=== PATIENT | male | born 1955 | race African-American/Black ===

== ENCOUNTER 2020-03-01 13:27 | Inpatient (IN) | payer MEDICARE, MEDICAID ==
[2020-03-01 21:32] VITALS: BP 122/93
[2020-03-02 12:40] LABS: CHOLESTEROL 117 mg/dL (<200); LDL CHOLESTEROL 69 mg/dL (0-129); TRIGLYCERIDES 76 mg/dL (30-150)
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
[2020-03-02] MEDS ORDERED: Albuterol Nebulizer 2.5mg/3mL HHN PRN (13:24)
[2020-03-02] MEDS ORDERED: Acetaminophen 500 MG TAB PO PRN (13:24)
[2020-03-02] MEDS ORDERED: Magnesium Hydroxide (MOM) 30 mL UDC PO PRN (13:28)
--- NOTE | 2020-03-02 13:36 | History & Physical ---
ADMIT DATE: 03/02/2020 HISTORY OF PRESENT ILLNESS: We have a 64-year-old male who is transferred from [facility] at [place]. The patient has a history of hypertension, BPH, hepatitis C, who is brought here for further management. The patient has a reported history of HIV. The patient is an extremely poor historian and is hallucinating and responding to internal stimuli. No nausea, vomiting, abdominal pain, diarrhea. PAST MEDICAL HISTORY: 1. Probable HIV. 2. Hypertension. 3. History of seizures. 4. Benign prostatic hypertrophy. 5. Hepatitis C. SURGICAL HISTORY: None. MEDICATIONS: List reviewed. ALLERGIES: None. SOCIAL HISTORY: Tobacco, IV drugs, ETOH negative. REVIEW OF SYSTEMS: Difficult. PHYSICAL EXAMINATION: VITAL SIGNS: Temperature is 98.1, pulse 72, respirations 110/70, satting 95% on room air. HEENT: Normocephalic, atraumatic head exam. NECK: Supple. CARDIOVASCULAR: Regular rate and rhythm. LUNGS: Decreased breath sounds. ABDOMEN: Soft, nontender. EXTREMITIES: No edema, cyanosis or clubbing. NEUROLOGIC: Cranial nerve exam, the patient is not cooperative. ASSESSMENT AND PLAN: 1. HIV. 2. Hepatitis C. 3. Hypertension. The patient will be continued on his home meds. The patient will have a CBC, CMP and COVID screening test done. [facility]# [id number]
[2020-03-02] MEDS ORDERED: EMTRICITABINE PO SCH (13:45)
[2020-03-02] MEDS ORDERED: TENOFOVIR PO SCH (13:45)
[2020-03-02] MEDS: TIVICAY 50 MG PO SCH (15:18)
[2020-03-02] MEDS: TRUVADA PO SCH (15:18)
[2020-03-03] MEDS: TIVICAY 50 MG PO SCH (08:45)
[2020-03-03] MEDS: TRUVADA PO SCH (08:45)
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
--- NOTE | 2020-03-03 14:16 | Internal Medicine Prog Note ---
Internal Medicine Subjective - Subjective Service Date: 03/03/20 Patient seen and examined:: without staff Patient is:: awake Per staff patient has:: no adverse event, no episodes of fall Internal Medicine Objective - Results Recent Labs: Laboratory Last Values Triglycerides 76 mg/dL (30-150) 03/02/20 10:21 Cholesterol 117 mg/dL (<200) 03/02/20 10:21 LDL Cholesterol 69 mg/dL (0-129) 03/02/20 10:21 HDL Cholesterol 34 mg/dL (>45) L 03/02/20 10:21 - Physical Exam Vitals and I&O: Vital Signs Temp 97.3 F 03/03/20 06:16 Pulse 77 03/03/20 08:38 Resp 20 03/03/20 07:17 BP 114/70 03/03/20 08:38 Pulse Ox 98 03/03/20 06:16 Intake & Output 03/02/20 03/03/20 03/03/20 18:59 06:59 18:59 Intake Total 1200 240 Balance 1200 240 Intake: Oral 1200 240 Other: # Voids 4 2 # Bowel Movements 1 Active Medications: Current Medications Acetaminophen (Tylenol) 650 mg PO Q4H PRN PRN Reason: Temperature above 101 Stop: 04/30/20 22:14 Acetaminophen (Tylenol Extra Strength) 500 mg PO Q6HR PRN PRN Reason: Pain (Mild 1-3) Stop: 05/01/20 13:23 Albuterol Sulfate (Albuterol 2.5mg/3ml Neb Ud) 2.5 mg HHN Q6HR PRN PRN Reason: Shortness of Breath Amlodipine Besylate (Norvasc) 2.5 mg PO DAILY JUHI Stop: 05/02/20 08:59 Last Admin: 03/03/20 08:38 Dose: 2.5 mg Bisacodyl (Dulcolax 10 Mg Supp) 10 mg RC Q24H PRN PRN Reason: IF MOM IS INEFFECTIVE Stop: 05/01/20 13:23 Haloperidol (Haldol) 5 mg PO DAILY JUHI; Protocol Stop: 05/01/20 08:59 Last Admin: 03/03/20 08:37 Dose: 5 mg Lorazepam (Ativan) 0.5 mg PO Q4HR PRN; Protocol PRN Reason: Anxiety Stop: 03/31/20 22:14 Last Admin: 03/03/20 08:44 Dose: 0.5 mg Magnesium Hydroxide (Milk Of Magnesia) 30 ml PO DAILY PRN PRN Reason: CONSTIPATION Stop: 05/01/20 13:27 Patient Own Med- Tivicay ( Dolutegravir ) 50mg Tab 1 PO DAILY JUHI Stop: 05/01/20 14:59 Last Admin: 03/03/20 08:45 Dose: 1 Patient Own Med- Truvada ( Emtricitabine/Tenofovir) 200/300mg 1 PO DAILY JUHI Stop: 05/01/20 14:59 Last Admin: 03/03/20 08:45 Dose: 1 Tamsulosin HCl (Flomax) 0.4 mg PO DAILY JUHI Stop: 05/02/20 08:59 Last Admin: 03/03/20 08:37 Dose: 0.4 mg Valproate Sodium (Depakene) 500 mg PO DAILY JUHI Stop: 05/01/20 08:59 Last Admin: 03/03/20 08:37 Dose: 500 mg Zolpidem Tartrate (Ambien) 5 mg PO HS PRN PRN Reason: Insomnia Stop: 04/30/20 22:14 General: weak HEENT: NC/AT Neck: Supple Lungs: CTAB Cardiovascular: RRR, Normal S1, Normal S2 Abdomen: soft, non-tender Extremities: clear Internal Medicine Assmt/Plan - Assessment Assessment: 1. HIV 2. Hep. C 3. Htn - Plan Plan: continue HIV meds continue norvasc continue nebulizers d/w r.n. reviewed complete medical records
[2020-03-04] MEDS: TRUVADA PO SCH ×2 (09:44→18:09)
[2020-03-04] MEDS: TIVICAY 50 MG PO SCH ×2 (09:44→18:09)
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
--- NOTE | 2020-03-04 22:53 | Progress Notes ---
DATE: 03/04/2020 SUBJECTIVE: Staff was spoken to. The patient is interviewed. Mood is noted to be irritable. Affect is constricted. The patient to be intrusive and sexually preoccupied. The patient's coping skills are noted to be very poor. The patient needs to be redirected and closely monitored, gets easily agitated and needs to be redirected. ASSESSMENT: The patient is still impulsive. PLAN: To continue the patient with the supportive therapy, encouraged the patient to verbalize the concerns rather than to act out. JOB# [id number]
[2020-03-05] MEDS: TRUVADA PO SCH (09:06)
[2020-03-05] MEDS: TIVICAY 50 MG PO SCH (09:06)
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
[2020-03-06] MEDS: TIVICAY 50 MG PO SCH (08:53)
[2020-03-06] MEDS: TRUVADA PO SCH (08:53)
[2020-03-06 11:34] LABS: A1C 5.1
--- NOTE | 2020-03-06 17:26 | Internal Medicine Prog Note ---
Internal Medicine Subjective - Subjective Service Date: 03/06/20 Patient seen and examined:: without staff Patient is:: awake Per staff patient has:: no adverse event, no episodes of fall Internal Medicine Objective - Results Recent Labs: Laboratory Last Values Triglycerides 76 mg/dL (30-150) 03/02/20 10:21 Cholesterol 117 mg/dL (<200) 03/02/20 10:21 LDL Cholesterol 69 mg/dL (0-129) 03/02/20 10:21 HDL Cholesterol 34 mg/dL (>45) L 03/02/20 10:21 - Physical Exam Vitals and I&O: Vital Signs Temp 97.6 F 03/06/20 15:39 Pulse 83 03/06/20 15:39 Resp 24 03/06/20 15:39 BP 109/68 03/06/20 15:39 Pulse Ox 97 03/06/20 15:39 Intake & Output 03/05/20 03/06/20 03/06/20 18:59 06:59 18:59 Intake Total 1200 600 Output Total 1 Balance 1199 600 Intake: Oral 1200 600 Output: Stool 1 Other: # Voids 4 1 # Bowel Movements 0 Active Medications: Current Medications Acetaminophen (Tylenol) 650 mg PO Q4H PRN PRN Reason: Temperature above 101 Stop: 04/30/20 22:14 Acetaminophen (Tylenol Extra Strength) 500 mg PO Q6HR PRN PRN Reason: Pain (Mild 1-3) Stop: 05/01/20 13:23 Albuterol Sulfate (Albuterol 2.5mg/3ml Neb Ud) 2.5 mg HHN Q6HR PRN PRN Reason: Shortness of Breath Amlodipine Besylate (Norvasc) 2.5 mg PO DAILY JUHI Stop: 05/02/20 08:59 Last Admin: 03/06/20 08:52 Dose: 2.5 mg Bisacodyl (Dulcolax 10 Mg Supp) 10 mg RC Q24H PRN PRN Reason: IF MOM IS INEFFECTIVE Stop: 05/01/20 13:23 Haloperidol (Haldol) 5 mg PO DAILY JUHI; Protocol Stop: 05/01/20 08:59 Last Admin: 03/06/20 08:52 Dose: 5 mg Lorazepam (Ativan) 0.5 mg PO Q4HR PRN; Protocol PRN Reason: Anxiety Stop: 03/31/20 22:14 Last Admin: 03/03/20 08:44 Dose: 0.5 mg Magnesium Hydroxide (Milk Of Magnesia) 30 ml PO DAILY PRN PRN Reason: CONSTIPATION Stop: 05/01/20 13:27 Patient Own Med- Tivicay ( Dolutegravir ) 50mg Tab 1 PO DAILY JUHI Stop: 05/01/20 14:59 Last Admin: 03/06/20 08:53 Dose: 1 Patient Own Med- Truvada ( Emtricitabine/Tenofovir) 200/300mg 1 PO DAILY JUHI Stop: 05/01/20 14:59 Last Admin: 03/06/20 08:53 Dose: 1 Tamsulosin HCl (Flomax) 0.4 mg PO DAILY JUHI Stop: 05/02/20 08:59 Last Admin: 03/06/20 08:53 Dose: 0.4 mg Valproate Sodium (Depakene) 500 mg PO DAILY JUHI Stop: 05/01/20 08:59 Last Admin: 03/06/20 08:52 Dose: Not Given Zolpidem Tartrate (Ambien) 5 mg PO HS PRN PRN Reason: Insomnia Stop: 04/30/20 22:14 General: weak HEENT: NC/AT Neck: Supple Lungs: CTAB Cardiovascular: RRR, Normal S1, Normal S2 Abdomen: soft, non-tender Extremities: clear Internal Medicine Assmt/Plan - Assessment Assessment: 1. HIV 2. Hep. C 3. Htn - Plan Plan: check covid-19 continue HIV meds continue norvasc continue nebulizers d/w r.n. reviewed complete medical records Nutritional Asmnt/Malnutr-PDOC - Dietary Evaluation Malnutrition Findings (Please click <Entered> for more info): Nutritional Asmnt/Malnutrition Start: 03/06/20 13: 44 Text: Status: Complete Freq: Protocol: Document 03/06/20 13:44 TANISHA (Rec: 03/06/20 13:47 TANISHA [id number]) Nutritional Asmnt/Malnutrition Patient General Information Nutritional Screening Low Risk Diagnosis Acute agitation and Psychosis Pertinent Medical Hx/Surgical Hx HIV, HTN, Seizures, BPH, Hepatitis C, Epilepsy Subjective Information Pt is a 64-year-old male admitted on 03/01 d/t need for further management, hallucinations and responding to internal stimuli. Pt is eating an estimated 100% of meals Per Meal/Nutrition Activity Record. Dietary is currently providing an estimated 2233 kcals and 115 gm Pro, to meet 100+% kcal and 100+% Pro needs. Anthropometrics HT: 6 WT: 222 LB (100 kg) ABW: 189 LB (85.91 kg) BMI: 30.18 (Obese Class I) GI/ Skin Integrity GI: WNL, Soft, Non-tender, Large BM: 03/04 x1 I/O: 1880/Not Noted Skin: WNL, Intact Sae: 22 Diet Order: Mechanical Soft Estimated Energy Needs: (Obese , ABW) 1113-9445 kcals (25-30 kcals/ kg) 70-90g Pro (1.0-1.2 g/kg) 8716-5108 ml (25-30 ml/kg) Current Diet Order/ Nutrition Support Mechanical Soft Pertinent Medications Albuterol Sulfate, Norvasc, Dulcolax (PRN), MOM (PRN) Pertinent Labs 03/02: HDL 34 Nutritional Hx/Data Height 1.83 m Height (Calculated Centimeters) 182.9 Current Weight (lbs) 100.698 kg Weight (Calculated Kilograms) 100.7 Weight (Calculated Grams) 015703.5 [place] Body Weight 178 LB (80.90 kg) % [place] Body Weight 125 Body Mass Index (BMI) 30.1 Weight Status Obese GI Symptoms GI Symptoms None Last BM 03/04 x1 Skin Integrity/Comment: WNL, Intact Sae: 22 Estimated Nutritional Goals BEE in Kcals: Adj wt of IBW Calories/Kcals/Kg 20-25 Kcals Calculated 7858-1791 Protein: Adj wt of IBW Protein g/k.8-1.0 Protein Calculated 70-90 Fluid: ml 2273-4595 ml (25-30 ml/kg) Nutritional Problem No current Nutrition Prob Problem No nutrition diagnosis at this time. Etiology N/A Signs/Symptoms: N/A Malnutrition Related to Morbid Obesity Malnutrition related to morbid obesity No Intervention/Recommendation Comments Continue Mechanical Soft diet as tolerated. Expected Outcomes/Goals Expected Outcomes/Goals 1. PO intake to continue to meet >75% of estimated nutritional needs. 2. Monitor PO intake, wt, nutrition related labs, and skin integrity. 3. F/U as low risk in 7-10 days, 03/13-03/16.
--- NOTE | 2020-03-06 21:36 | Progress Notes ---
DATE: 03/06/2020 PSYCHIATRIC PROGRESS NOTE SUBJECTIVE: Staff was spoken to. The patient is interviewed. Mood is noted to be irritable. Affect is constricted. The patient's insight and judgment are noted to be very poor. Impulse control is also noted to be very poor. The patient has been having difficult time to cope with the stress. The patient has been very argumentative this morning and the patient needs to be redirected. ASSESSMENT: The patient is still psychotic and impulsive. PLAN: To continue the patient with the current medications and follow up. JOB# [id number]
[2020-03-07] MEDS: TIVICAY 50 MG PO SCH (09:28)
[2020-03-07] MEDS: TRUVADA PO SCH (09:28)
--- NOTE | 2020-03-07 11:15 | Progress Notes ---
DATE: 03/06/2020 PSYCHOLOGY PROGRESS NOTE SUBJECTIVE: The patient is seen in his room and is interviewed. Case is discussed with staff. The patient continues to present as guarded, suspicious and irritable. Staff reports the patient's impulse control continues to be very poor and is not responding to behavioral redirection. The patient was angry and argumentative with this entry writer. OBJECTIVE: Mood is irritable. Affect is constricted. Thought process shows to be confused. There is paranoid ideation present. The patient was unable to verbally contract for safety. The patient did not answer questions about experiencing suicidal or homicidal ideation, plan or intention. The patient's behavior is easily agitated with poor redirectability. ASSESSMENT: The patient's psychosis and impulsivity persist. PLAN: We provided de-escalation and limit setting. We provided anger management. We provided stress management to assist the patient in increasing his frustration tolerance. We encouraged the patient to verbalize his concerns and to interact with staff appropriately as well as to follow through with staff direction. We will continue to provide this type of behavioral therapy. The patient was unable to verbally contract for safety. We will follow up in 2-3 days to continue the present treatment if the patient is able to demonstrate the capacity to benefit from psychology services as well as the willingness to participate in this treatment. JOB# [id number] LUKAS
--- NOTE | 2020-03-07 14:42 | Internal Medicine Prog Note ---
Internal Medicine Subjective - Subjective Service Date: 03/07/20 Patient seen and examined:: without staff Patient is:: awake Per staff patient has:: no adverse event, no episodes of fall Internal Medicine Objective - Results Recent Labs: Laboratory Last Values Triglycerides 76 mg/dL (30-150) 03/02/20 10:21 Cholesterol 117 mg/dL (<200) 03/02/20 10:21 LDL Cholesterol 69 mg/dL (0-129) 03/02/20 10:21 HDL Cholesterol 34 mg/dL (>45) L 03/02/20 10:21 - Physical Exam Vitals and I&O: Vital Signs Temp 98 F 03/07/20 06:24 Pulse 80 03/07/20 09:23 Resp 19 03/07/20 08:00 BP 125/71 03/07/20 09:23 Pulse Ox 99 03/07/20 06:24 Intake & Output 03/06/20 03/07/20 03/07/20 18:59 06:59 18:59 Intake Total 240 Balance 240 Intake: Oral 240 Other: # Voids 3 # Bowel Movements 0 Active Medications: Current Medications Acetaminophen (Tylenol) 650 mg PO Q4H PRN PRN Reason: Temperature above 101 Stop: 04/30/20 22:14 Acetaminophen (Tylenol Extra Strength) 500 mg PO Q6HR PRN PRN Reason: Pain (Mild 1-3) Stop: 05/01/20 13:23 Albuterol Sulfate (Albuterol 2.5mg/3ml Neb Ud) 2.5 mg HHN Q6HR PRN PRN Reason: Shortness of Breath Amlodipine Besylate (Norvasc) 2.5 mg PO DAILY [facility] Stop: 05/02/20 08:59 Last Admin: 03/07/20 09:23 Dose: 2.5 mg Bisacodyl (Dulcolax 10 Mg Supp) 10 mg RC Q24H PRN PRN Reason: IF MOM IS INEFFECTIVE Stop: 05/01/20 13:23 Haloperidol (Haldol) 5 mg PO DAILY [facility]; Protocol Stop: 05/01/20 08:59 Last Admin: 03/07/20 09:24 Dose: 5 mg Lorazepam (Ativan) 0.5 mg PO Q4HR PRN; Protocol PRN Reason: Anxiety Stop: 03/31/20 22:14 Last Admin: 03/03/20 08:44 Dose: 0.5 mg Magnesium Hydroxide (Milk Of Magnesia) 30 ml PO DAILY PRN PRN Reason: CONSTIPATION Stop: 05/01/20 13:27 Patient Own Med- Tivicay ( Dolutegravir ) 50mg Tab 1 PO DAILY [facility] Stop: 05/01/20 14:59 Last Admin: 03/07/20 09:28 Dose: 1 Patient Own Med- Truvada ( Emtricitabine/Tenofovir) 200/300mg 1 PO DAILY [facility] Stop: 05/01/20 14:59 Last Admin: 03/07/20 09:28 Dose: 1 Tamsulosin HCl (Flomax) 0.4 mg PO DAILY [facility] Stop: 05/02/20 08:59 Last Admin: 03/07/20 09:23 Dose: 0.4 mg Valproate Sodium (Depakene) 500 mg PO BID [facility] Stop: 05/06/20 16:59 Zolpidem Tartrate (Ambien) 5 mg PO HS PRN PRN Reason: Insomnia Stop: 04/30/20 22:14 General: weak HEENT: NC/AT Neck: Supple Lungs: CTAB Cardiovascular: RRR, Normal S1, Normal S2 Abdomen: soft, non-tender Extremities: clear Neurological: no change Internal Medicine Assmt/Plan - Assessment Assessment: 1. HIV 2. Hep. C 3. Htn - Plan Plan: await covid results no overt symptoms of Covid continue HIV meds continue norvasc continue nebulizers d/w r.n. reviewed complete medical records Nutritional Asmnt/Malnutr-PDOC - Dietary Evaluation Malnutrition Findings (Please click <Entered> for more info): Nutritional Asmnt/Malnutrition Start: 03/06/20 13: 44 Text: Status: Complete Freq: Protocol: Document 03/06/20 13:44 TANISHA (Rec: 03/06/20 13:47 TANISHA [id number] -[id number]) Nutritional Asmnt/Malnutrition Patient General Information Nutritional Screening Low Risk Diagnosis Acute agitation and Psychosis Pertinent Medical Hx/Surgical Hx HIV, HTN, Seizures, BPH, Hepatitis C, Epilepsy Subjective Information Pt is a 64-year-old male admitted on 03/01 d/t need for further management, hallucinations and responding to internal stimuli. Pt is eating an estimated 100% of meals Per Meal/Nutrition Activity Record. Dietary is currently providing an estimated 2233 kcals and 115 gm Pro, to meet 100+% kcal and 100+% Pro needs. Anthropometrics HT: 6 WT: 222 LB (100 kg) ABW: 189 LB (85.91 kg) BMI: 30.18 (Obese Class I) GI/ Skin Integrity GI: WNL, Soft, Non-tender, Large BM: 03/04 x1 I/O: 1880/Not Noted Skin: WNL, Intact Sae: 22 Diet Order: Mechanical Soft Estimated Energy Needs: (Obese , ABW) 7651-4335 kcals (25-30 kcals/ kg) 70-90g Pro (1.0-1.2 g/kg) 0046-3624 ml (25-30 ml/kg) Current Diet Order/ Nutrition Support Mechanical Soft Pertinent Medications Albuterol Sulfate, Norvasc, Dulcolax (PRN), MOM (PRN) Pertinent Labs 03/02: HDL 34 Nutritional Hx/Data Height 1.83 m Height (Calculated Centimeters) 182.9 Current Weight (lbs) 100.698 kg Weight (Calculated Kilograms) 100.7 Weight (Calculated Grams) 516325.5 [place] Body Weight 178 LB (80.90 kg) % [place] Body Weight 125 Body Mass Index (BMI) 30.1 Weight Status Obese GI Symptoms GI Symptoms None Last BM 03/04 x1 Skin Integrity/Comment: WNL, Intact Sae: 22 Estimated Nutritional Goals BEE in Kcals: Adj wt of IBW Calories/Kcals/Kg 20-25 Kcals Calculated 1270-0668 Protein: Adj wt of IBW Protein g/k.8-1.0 Protein Calculated 70-90 Fluid: ml 4797-3239 ml (25-30 ml/kg) Nutritional Problem No current Nutrition Prob Problem No nutrition diagnosis at this time. Etiology N/A Signs/Symptoms: N/A Malnutrition Related to Morbid Obesity Malnutrition related to morbid obesity No Intervention/Recommendation Comments Continue Mechanical Soft diet as tolerated. Expected Outcomes/Goals Expected Outcomes/Goals 1. PO intake to continue to meet >75% of estimated nutritional needs. 2. Monitor PO intake, wt, nutrition related labs, and skin integrity. 3. F/U as low risk in 7-10 days, 03/13-03/16.
--- NOTE | 2020-03-07 23:04 | Progress Notes ---
DATE: 03/07/2020 PSYCHIATRIC PROGRESS NOTE SUBJECTIVE: Staff was spoken to. The patient is interviewed. Mood is noted to be irritable. Affect is constricted. Insight and judgment at this time are noted to be still impaired. Impulse control is noted to be limited. ____ has been having difficult time. Continues to be paranoid and has been getting easily agitated. The patient has been currently on valproic acid 500 mg, which is going to be increased to twice a day in view of the impulsive behavior and mood swings and the patient is going to be followed up with the supportive therapy. ASSESSMENT: The patient is still impulsive and paranoid. PLAN: To continue the patient with the current medications and followup. JOB# [id number]
[2020-03-08] MEDS: TIVICAY 50 MG PO SCH (08:27)
[2020-03-08] MEDS: TRUVADA PO SCH (08:27)
--- NOTE | 2020-03-08 12:15 | Progress Notes ---
DATE: 03/08/2020 SUBJECTIVE: Staff was spoken to. The patient is interviewed. Mood is noted to be irritable. Affect is constricted. The patient is getting agitated at times, but could be redirectable. Sexual preoccupation has been coming down. No side effects to the medications are noted. The patient has been placed on Depakote, little bit of a higher dose along with the haloperidol and the patient is going to be closely monitored. ASSESSMENT: The patient is still having mood swings. PLAN: To continue the patient with the supportive therapy. I encouraged the patient to verbalize the concerns rather than to act out. JOB# [id number]
--- NOTE | 2020-03-08 14:14 | Internal Medicine Prog Note ---
Internal Medicine Subjective - Subjective Service Date: 03/08/20 Patient seen and examined:: without staff Patient is:: awake Per staff patient has:: no adverse event, no episodes of fall Internal Medicine Objective - Results Recent Labs: Laboratory Last Values Triglycerides 76 mg/dL (30-150) 03/02/20 10:21 Cholesterol 117 mg/dL (<200) 03/02/20 10:21 LDL Cholesterol 69 mg/dL (0-129) 03/02/20 10:21 HDL Cholesterol 34 mg/dL (>45) L 03/02/20 10:21 - Physical Exam Vitals and I&O: Vital Signs Temp 97.9 F 03/08/20 05:58 Pulse 72 03/08/20 08:18 Resp 20 03/08/20 05:58 BP 115/87 03/08/20 08:18 Pulse Ox 97 03/08/20 05:58 Intake & Output 03/07/20 03/08/20 03/08/20 18:59 06:59 18:59 Intake Total 1100 Balance 1100 Intake: Oral 1100 Other: # Voids 2 3 # Bowel Movements 0 0 Active Medications: Current Medications Acetaminophen (Tylenol) 650 mg PO Q4H PRN PRN Reason: Temperature above 101 Stop: 04/30/20 22:14 Acetaminophen (Tylenol Extra Strength) 500 mg PO Q6HR PRN PRN Reason: Pain (Mild 1-3) Stop: 05/01/20 13:23 Albuterol Sulfate (Albuterol 2.5mg/3ml Neb Ud) 2.5 mg HHN Q6HR PRN PRN Reason: Shortness of Breath Amlodipine Besylate (Norvasc) 2.5 mg PO DAILY [facility] Stop: 05/02/20 08:59 Last Admin: 03/08/20 08:18 Dose: 2.5 mg Bisacodyl (Dulcolax 10 Mg Supp) 10 mg RC Q24H PRN PRN Reason: IF MOM IS INEFFECTIVE Stop: 05/01/20 13:23 Diphenhydramine HCl (Benadryl) 25 mg PO BID PRN PRN Reason: Itching Stop: 05/07/20 09:19 Haloperidol (Haldol) 5 mg PO DAILY [facility]; Protocol Stop: 05/01/20 08:59 Last Admin: 03/08/20 08:19 Dose: 5 mg Lorazepam (Ativan) 0.5 mg PO Q4HR PRN; Protocol PRN Reason: Anxiety Stop: 03/31/20 22:14 Last Admin: 03/08/20 08:19 Dose: 0.5 mg Magnesium Hydroxide (Milk Of Magnesia) 30 ml PO DAILY PRN PRN Reason: CONSTIPATION Stop: 05/01/20 13:27 Patient Own Med- Tivicay ( Dolutegravir ) 50mg Tab 1 PO DAILY [facility] Stop: 05/01/20 14:59 Last Admin: 03/08/20 08:27 Dose: 1 Patient Own Med- Truvada ( Emtricitabine/Tenofovir) 200/300mg 1 PO DAILY [facility] Stop: 05/01/20 14:59 Last Admin: 03/08/20 08:27 Dose: 1 Tamsulosin HCl (Flomax) 0.4 mg PO DAILY [facility] Stop: 05/02/20 08:59 Last Admin: 03/08/20 08:18 Dose: 0.4 mg Valproate Sodium (Depakene) 500 mg PO BID [facility] Stop: 05/06/20 16:59 Last Admin: 03/08/20 08:25 Dose: 500 mg Zolpidem Tartrate (Ambien) 5 mg PO HS PRN PRN Reason: Insomnia Stop: 04/30/20 22:14 General: weak HEENT: NC/AT Neck: Supple Lungs: CTAB Cardiovascular: RRR, Normal S1, Normal S2 Abdomen: soft, non-tender Extremities: clear Neurological: no change Internal Medicine Assmt/Plan - Assessment Assessment: 1. HIV 2. Hep. C 3. Htn - Plan Plan: no overt symptoms of Covid continue HIV meds continue norvasc continue nebulizers d/w r.n. reviewed complete medical records Nutritional Asmnt/Malnutr-PDOC - Dietary Evaluation Malnutrition Findings (Please click <Entered> for more info): Nutritional Asmnt/Malnutrition Start: 03/06/20 13: 44 Text: Status: Complete Freq: Protocol: Document 03/06/20 13:44 TANISHA (Rec: 03/06/20 13:47 TANISHA [id number] -[id number]) Nutritional Asmnt/Malnutrition Patient General Information Nutritional Screening Low Risk Diagnosis Acute agitation and Psychosis Pertinent Medical Hx/Surgical Hx HIV, HTN, Seizures, BPH, Hepatitis C, Epilepsy Subjective Information Pt is a 64-year-old male admitted on 03/01 d/t need for further management, hallucinations and responding to internal stimuli. Pt is eating an estimated 100% of meals Per Meal/Nutrition Activity Record. Dietary is currently providing an estimated 2233 kcals and 115 gm Pro, to meet 100+% kcal and 100+% Pro needs. Anthropometrics HT: 6 WT: 222 LB (100 kg) ABW: 189 LB (85.91 kg) BMI: 30.18 (Obese Class I) GI/ Skin Integrity GI: WNL, Soft, Non-tender, Large BM: 03/04 x1 I/O: 1880/Not Noted Skin: WNL, Intact Sae: 22 Diet Order: Mechanical Soft Estimated Energy Needs: (Obese , ABW) 3668-0492 kcals (25-30 kcals/ kg) 70-90g Pro (1.0-1.2 g/kg) 1771-7366 ml (25-30 ml/kg) Current Diet Order/ Nutrition Support Mechanical Soft Pertinent Medications Albuterol Sulfate, Norvasc, Dulcolax (PRN), MOM (PRN) Pertinent Labs 03/02: HDL 34 Nutritional Hx/Data Height 1.83 m Height (Calculated Centimeters) 182.9 Current Weight (lbs) 100.698 kg Weight (Calculated Kilograms) 100.7 Weight (Calculated Grams) 464945.5 [place] Body Weight 178 LB (80.90 kg) % [place] Body Weight 125 Body Mass Index (BMI) 30.1 Weight Status Obese GI Symptoms GI Symptoms None Last BM 03/04 x1 Skin Integrity/Comment: WNL, Intact Sae: 22 Estimated Nutritional Goals BEE in Kcals: Adj wt of IBW Calories/Kcals/Kg 20-25 Kcals Calculated 2312-1752 Protein: Adj wt of IBW Protein g/k.8-1.0 Protein Calculated 70-90 Fluid: ml 7706-3566 ml (25-30 ml/kg) Nutritional Problem No current Nutrition Prob Problem No nutrition diagnosis at this time. Etiology N/A Signs/Symptoms: N/A Malnutrition Related to Morbid Obesity Malnutrition related to morbid obesity No Intervention/Recommendation Comments Continue Mechanical Soft diet as tolerated. Expected Outcomes/Goals Expected Outcomes/Goals 1. PO intake to continue to meet >75% of estimated nutritional needs. 2. Monitor PO intake, wt, nutrition related labs, and skin integrity. 3. F/U as low risk in 7-10 days, 03/13-03/16.
[2020-03-09] MEDS: TRUVADA PO SCH (09:02)
[2020-03-09] MEDS: TIVICAY 50 MG PO SCH (09:08)
--- NOTE | 2020-03-09 13:39 | Internal Medicine Prog Note ---
Internal Medicine Subjective - Subjective Service Date: 03/09/20 Patient seen and examined:: without staff Patient is:: awake, interactive Per staff patient has:: no adverse event, no episodes of fall Internal Medicine Objective - Results Recent Labs: Laboratory Last Values Triglycerides 76 mg/dL (30-150) 03/02/20 10:21 Cholesterol 117 mg/dL (<200) 03/02/20 10:21 LDL Cholesterol 69 mg/dL (0-129) 03/02/20 10:21 HDL Cholesterol 34 mg/dL (>45) L 03/02/20 10:21 - Physical Exam Vitals and I&O: Vital Signs Temp 97.6 F 03/09/20 06:16 Pulse 67 03/09/20 09:03 Resp 20 03/09/20 06:16 BP 122/61 03/09/20 09:03 Pulse Ox 96 03/09/20 06:16 Intake & Output 03/08/20 03/09/20 03/09/20 18:59 06:59 18:59 Intake Total 900 120 Balance 900 120 Intake: Oral 900 120 Other: # Voids 3 3 # Bowel Movements 1 Active Medications: Current Medications Acetaminophen (Tylenol) 650 mg PO Q4H PRN PRN Reason: Temperature above 101 Stop: 04/30/20 22:14 Acetaminophen (Tylenol Extra Strength) 500 mg PO Q6HR PRN PRN Reason: Pain (Mild 1-3) Stop: 05/01/20 13:23 Albuterol Sulfate (Albuterol 2.5mg/3ml Neb Ud) 2.5 mg HHN Q6HR PRN PRN Reason: Shortness of Breath Amlodipine Besylate (Norvasc) 2.5 mg PO DAILY [facility] Stop: 05/02/20 08:59 Last Admin: 03/09/20 09:03 Dose: Not Given Benztropine Mesylate (Cogentin) 0.5 mg PO BID [facility] Stop: 05/08/20 16:59 Bisacodyl (Dulcolax 10 Mg Supp) 10 mg RC Q24H PRN PRN Reason: IF MOM IS INEFFECTIVE Stop: 05/01/20 13:23 Diphenhydramine HCl (Benadryl) 25 mg PO BID PRN PRN Reason: Itching Stop: 05/07/20 09:19 Haloperidol (Haldol) 5 mg PO DAILY JUHI; Protocol Stop: 05/01/20 08:59 Last Admin: 03/09/20 09:02 Dose: Not Given Lorazepam (Ativan) 0.5 mg PO Q4HR PRN; Protocol PRN Reason: Anxiety Stop: 03/31/20 22:14 Last Admin: 03/08/20 08:19 Dose: 0.5 mg Magnesium Hydroxide (Milk Of Magnesia) 30 ml PO DAILY PRN PRN Reason: CONSTIPATION Stop: 05/01/20 13:27 Patient Own Med- Tivicay ( Dolutegravir ) 50mg Tab 1 PO DAILY [facility] Stop: 05/01/20 14:59 Last Admin: 03/09/20 09:08 Dose: Not Given Patient Own Med- Truvada ( Emtricitabine/Tenofovir) 200/300mg 1 PO DAILY [facility] Stop: 05/01/20 14:59 Last Admin: 03/09/20 09:02 Dose: Not Given Tamsulosin HCl (Flomax) 0.4 mg PO DAILY [facility] Stop: 05/02/20 08:59 Last Admin: 03/09/20 09:02 Dose: Not Given Valproate Sodium (Depakene) 500 mg PO BID [facility] Stop: 05/06/20 16:59 Last Admin: 03/09/20 09:02 Dose: Not Given Zolpidem Tartrate (Ambien) 5 mg PO HS PRN PRN Reason: Insomnia Stop: 04/30/20 22:14 General: weak HEENT: NC/AT Neck: Supple Lungs: CTAB Cardiovascular: RRR, Normal S1, Normal S2 Abdomen: soft, non-tender Extremities: clear Neurological: no change Internal Medicine Assmt/Plan - Assessment Assessment: 1. HIV 2. Hep. C 3. Htn - Plan Plan: continue HIV meds continue norvasc continue nebulizers d/w r.n. reviewed complete medical records Nutritional Asmnt/Malnutr-PDOC - Dietary Evaluation Malnutrition Findings (Please click <Entered> for more info): Nutritional Asmnt/Malnutrition Start: 03/06/20 13: 44 Text: Status: Complete Freq: Protocol: Document 03/06/20 13:44 TANISHA (Rec: 03/06/20 13:47 TANISHA [id number] -[id number]) Nutritional Asmnt/Malnutrition Patient General Information Nutritional Screening Low Risk Diagnosis Acute agitation and Psychosis Pertinent Medical Hx/Surgical Hx HIV, HTN, Seizures, BPH, Hepatitis C, Epilepsy Subjective Information Pt is a 64-year-old male admitted on 03/01 d/t need for further management, hallucinations and responding to internal stimuli. Pt is eating an estimated 100% of meals Per Meal/Nutrition Activity Record. Dietary is currently providing an estimated 2233 kcals and 115 gm Pro, to meet 100+% kcal and 100+% Pro needs. Anthropometrics HT: 6 WT: 222 LB (100 kg) ABW: 189 LB (85.91 kg) BMI: 30.18 (Obese Class I) GI/ Skin Integrity GI: WNL, Soft, Non-tender, Large BM: 03/04 x1 I/O: 1880/Not Noted Skin: WNL, Intact Sae: 22 Diet Order: Mechanical Soft Estimated Energy Needs: (Obese , ABW) 0059-0675 kcals (25-30 kcals/ kg) 70-90g Pro (1.0-1.2 g/kg) 5882-8955 ml (25-30 ml/kg) Current Diet Order/ Nutrition Support Mechanical Soft Pertinent Medications Albuterol Sulfate, Norvasc, Dulcolax (PRN), MOM (PRN) Pertinent Labs 03/02: HDL 34 Nutritional Hx/Data Height 1.83 m Height (Calculated Centimeters) 182.9 Current Weight (lbs) 100.698 kg Weight (Calculated Kilograms) 100.7 Weight (Calculated Grams) 513233.5 [place] Body Weight 178 LB (80.90 kg) % [place] Body Weight 125 Body Mass Index (BMI) 30.1 Weight Status Obese GI Symptoms GI Symptoms None Last BM 03/04 x1 Skin Integrity/Comment: WNL, Intact Sae: 22 Estimated Nutritional Goals BEE in Kcals: Adj wt of IBW Calories/Kcals/Kg 20-25 Kcals Calculated 6120-8059 Protein: Adj wt of IBW Protein g/k.8-1.0 Protein Calculated 70-90 Fluid: ml 5157-0329 ml (25-30 ml/kg) Nutritional Problem No current Nutrition Prob Problem No nutrition diagnosis at this time. Etiology N/A Signs/Symptoms: N/A Malnutrition Related to Morbid Obesity Malnutrition related to morbid obesity No Intervention/Recommendation Comments Continue Mechanical Soft diet as tolerated. Expected Outcomes/Goals Expected Outcomes/Goals 1. PO intake to continue to meet >75% of estimated nutritional needs. 2. Monitor PO intake, wt, nutrition related labs, and skin integrity. 3. F/U as low risk in 7-10 days, 03/13-03/16.
--- NOTE | 2020-03-09 19:11 | Progress Notes ---
DATE: 03/09/2020 PSYCHIATRIC PROGRESS NOTE SUBJECTIVE: Staff was spoken to. The patient is interviewed. Mood is noted to be irritable. Affect is constricted. Insight and judgment are noted to be still impaired. Impulse control is noted to be limited. The patient's mood swings are noted. The patient is currently on haloperidol and Depakote and has been able to tolerate the medications. No side effects to medications are noted. However, the patient is stating that he used to be on Cogentin that helped him better rather the ____ and he wants to go back on the Cogentin and hence the patient is going to be placed on 0.5 mg twice a day and followed up. JOB# [id number]
[2020-03-10] MEDS: TRUVADA PO SCH (11:02)
[2020-03-10] MEDS: TIVICAY 50 MG PO SCH (11:02)
--- NOTE | 2020-03-10 15:04 | Internal Medicine Prog Note ---
Internal Medicine Subjective - Subjective Service Date: 03/10/20 Patient seen and examined:: without staff Patient is:: awake, interactive Per staff patient has:: no adverse event, no episodes of fall Internal Medicine Objective - Results Recent Labs: Laboratory Last Values Triglycerides 76 mg/dL (30-150) 03/02/20 10:21 Cholesterol 117 mg/dL (<200) 03/02/20 10:21 LDL Cholesterol 69 mg/dL (0-129) 03/02/20 10:21 HDL Cholesterol 34 mg/dL (>45) L 03/02/20 10:21 Coronavirus (PCR) Negative (NOT DETECTD) 03/06/20 16:05 - Physical Exam Vitals and I&O: Vital Signs Temp 97.8 F 03/10/20 14:35 Pulse 97 03/10/20 14:35 Resp 20 03/10/20 14:35 BP 122/56 03/10/20 14:35 Pulse Ox 98 03/10/20 14:35 Intake & Output 03/09/20 03/10/20 03/10/20 18:59 06:59 18:59 Intake Total 800 120 Balance 800 120 Intake: Oral 800 120 Other: # Voids 4 3 # Bowel Movements 0 Stool Characteristics Soft Soft Formed Formed [place] Active Medications: Current Medications Acetaminophen (Tylenol) 650 mg PO Q4H PRN PRN Reason: Temperature above 101 Stop: 04/30/20 22:14 Acetaminophen (Tylenol Extra Strength) 500 mg PO Q6HR PRN PRN Reason: Pain (Mild 1-3) Stop: 05/01/20 13:23 Albuterol Sulfate (Albuterol 2.5mg/3ml Neb Ud) 2.5 mg HHN Q6HR PRN PRN Reason: Shortness of Breath Amlodipine Besylate (Norvasc) 2.5 mg PO DAILY [facility] Stop: 05/02/20 08:59 Last Admin: 03/10/20 10:56 Dose: 2.5 mg Benztropine Mesylate (Cogentin) 0.5 mg PO BID [facility] Stop: 05/08/20 16:59 Last Admin: 03/10/20 10:55 Dose: 0.5 mg Bisacodyl (Dulcolax 10 Mg Supp) 10 mg RC Q24H PRN PRN Reason: IF MOM IS INEFFECTIVE Stop: 05/01/20 13:23 Diphenhydramine HCl (Benadryl) 25 mg PO BID PRN PRN Reason: Itching Stop: 05/07/20 09:19 Haloperidol (Haldol) 5 mg PO DAILY [facility]; Protocol Stop: 05/01/20 08:59 Last Admin: 03/10/20 10:55 Dose: Not Given Lorazepam (Ativan) 0.5 mg PO Q4HR PRN; Protocol PRN Reason: Anxiety Stop: 03/31/20 22:14 Last Admin: 03/09/20 20:14 Dose: 0.5 mg Magnesium Hydroxide (Milk Of Magnesia) 30 ml PO DAILY PRN PRN Reason: CONSTIPATION Stop: 05/01/20 13:27 Patient Own Med- Tivicay ( Dolutegravir ) 50mg Tab 1 PO DAILY [facility] Stop: 05/01/20 14:59 Last Admin: 03/10/20 11:02 Dose: Not Given Patient Own Med- Truvada ( Emtricitabine/Tenofovir) 200/300mg 1 PO DAILY [facility] Stop: 05/01/20 14:59 Last Admin: 03/10/20 11:02 Dose: 1 Tamsulosin HCl (Flomax) 0.4 mg PO DAILY [facility] Stop: 05/02/20 08:59 Last Admin: 03/10/20 10:56 Dose: 0.4 mg Valproate Sodium (Depakene) 500 mg PO BID [facility] Stop: 05/06/20 16:59 Last Admin: 03/10/20 10:55 Dose: 500 mg Zolpidem Tartrate (Ambien) 5 mg PO HS PRN PRN Reason: Insomnia Stop: 04/30/20 22:14 Last Admin: 03/09/20 21:58 Dose: 5 mg General: weak HEENT: NC/AT Neck: Supple Lungs: CTAB Cardiovascular: RRR, Normal S1, Normal S2 Abdomen: soft, non-tender Extremities: clear Neurological: no change Internal Medicine Assmt/Plan - Assessment Assessment: 1. HIV 2. Hep. C 3. Htn - Plan Plan: continue HIV meds continue norvasc continue nebulizers d/w r.n. reviewed complete medical records Nutritional Asmnt/Malnutr-PDOC - Dietary Evaluation Malnutrition Findings (Please click <Entered> for more info): Nutritional Asmnt/Malnutrition Start: 03/06/20 13: 44 Text: Status: Complete Freq: Protocol: Document 03/06/20 13:44 TANISHA (Rec: 03/06/20 13:47 TANISHA VALENCIAN-CTXTS -[email or web address]) Nutritional Asmnt/Malnutrition Patient General Information Nutritional Screening Low Risk Diagnosis Acute agitation and Psychosis Pertinent Medical Hx/Surgical Hx HIV, HTN, Seizures, BPH, Hepatitis C, Epilepsy Subjective Information Pt is a 64-year-old male admitted on 03/01 d/t need for further management, hallucinations and responding to internal stimuli. Pt is eating an estimated 100% of meals Per Meal/Nutrition Activity Record. Dietary is currently providing an estimated 2233 kcals and 115 gm Pro, to meet 100+% kcal and 100+% Pro needs. Anthropometrics HT: 6 WT: 222 LB (100 kg) ABW: 189 LB (85.91 kg) BMI: 30.18 (Obese Class I) GI/ Skin Integrity GI: WNL, Soft, Non-tender, Large BM: 03/04 x1 I/O: 1880/Not Noted Skin: WNL, Intact Sae: 22 Diet Order: Mechanical Soft Estimated Energy Needs: (Obese , ABW) 6893-6598 kcals (25-30 kcals/ kg) 70-90g Pro (1.0-1.2 g/kg) 4369-7949 ml (25-30 ml/kg) Current Diet Order/ Nutrition Support Mechanical Soft Pertinent Medications Albuterol Sulfate, Norvasc, Dulcolax (PRN), MOM (PRN) Pertinent Labs 03/02: HDL 34 Nutritional Hx/Data Height 1.83 m Height (Calculated Centimeters) 182.9 Current Weight (lbs) 100.698 kg Weight (Calculated Kilograms) 100.7 Weight (Calculated Grams) 778616.5 [place] Body Weight 178 LB (80.90 kg) % [place] Body Weight 125 Body Mass Index (BMI) 30.1 Weight Status Obese GI Symptoms GI Symptoms None Last BM 03/04 x1 Skin Integrity/Comment: WNL, Intact Sae: 22 Estimated Nutritional Goals BEE in Kcals: Adj wt of IBW Calories/Kcals/Kg 20-25 Kcals Calculated 4176-3832 Protein: Adj wt of IBW Protein g/k.8-1.0 Protein Calculated 70-90 Fluid: ml 1076-4346 ml (25-30 ml/kg) Nutritional Problem No current Nutrition Prob Problem No nutrition diagnosis at this time. Etiology N/A Signs/Symptoms: N/A Malnutrition Related to Morbid Obesity Malnutrition related to morbid obesity No Intervention/Recommendation Comments Continue Mechanical Soft diet as tolerated. Expected Outcomes/Goals Expected Outcomes/Goals 1. PO intake to continue to meet >75% of estimated nutritional needs. 2. Monitor PO intake, wt, nutrition related labs, and skin integrity. 3. F/U as low risk in 7-10 days, 03/13-03/16.
--- NOTE | 2020-03-10 20:32 | Progress Notes ---
DATE: 03/10/2020 PSYCHIATRIC PROGRESS NOTE SUBJECTIVE: Staff was spoken to. The patient is interviewed. Mood is noted to be irritable. Affect is constricted. The patient's insight and judgment are noted to be still impaired. Impulse control is noted to be limited. Coping skills are noted to be limited. The patient has been having difficult time to follow the directions. The patient has been having multiple medical problems. He states he is frustrated for being in here. Sleep and appetite at this time are noted to be fair. No side effects to the medications are noted. Initially, the patient has been presenting with the major behavioral problems so far, we have been observing the patient's impulsivity is coming down, the patient's sexual preoccupation is also going to be coming down to some extent. ASSESSMENT: The patient's psychosis is resolving. PLAN: To continue the patient with the supportive therapy, encouraged the patient to verbalize the concerns rather than to act out. JOB# [id number]
--- NOTE | 2020-03-12 07:56 | Progress Notes ---
DATE: 03/10/2020 PSYCHOLOGY PROGRESS NOTE SUBJECTIVE: The patient is seen and is interviewed. Case is discussed with staff. The patient presents as guarded and mildly irritable. The staff reports the patient continues to state that he is frustrated with being on the geropsychiatric unit and does not understand why he is being hospitalized here since he has medical problems only. The patient continues to have a preoccupation with inappropriate sexual behavior with the female staff. OBJECTIVE: Mood is irritable. Affect is constricted. Thought process shows preoccupation with sexual gestures and comments. The patient denied any suicidal ideation, plan or intention. There is evidence of paranoid ideation present. The patient has been compliant with his medications. Staff reports the patient's impulse control is improving somewhat, however, the patient continues to need behavioral management re: appropriate boundary definitions. ASSESSMENT: The patient's psychosis is resolving. PLAN: Staff reports the patient is most likely discharging today. We provided supportive psychotherapy and included reality testing, reality differentiation and reality integration. We provided cognitive behavioral therapy, which included limit setting to encourage the patient to interact appropriately with female staff and peers with appropriate boundaries. We provided coping strategies for chronic severe mental illness as well. We provided remotivation for the patient to become compliant and stay compliant with all aspects of his care and treatment. No followup is indicated as the patient is most likely discharging today. Thank you, Dr. Lopez for this consult and the opportunity to participate with you in this patient's care. [facility]# [id number] LUKAS
--- NOTE | 2020-03-12 07:56 | Discharge Summary ---
DATE OF DISCHARGE: 03/10/2020 PSYCHIATRIC DISCHARGE SUMMARY IDENTIFYING DATA: The patient is a 64-year-old -[place] male, resident of [place] in [place]. Information obtained directly interviewing the patient as well as reviewing the admission papers. JUSTIFICATION OF HOSPITALIZATION: The patient is admitted on a voluntary basis in view of his acute agitation and psychosis. CHIEF COMPLAINT: "I don't understand what is going on." DIAGNOSES AT THE TIME OF ADMISSION: AXIS I: Unspecified psychosis. AXIS II: None. AXIS III: As per Dr. Beckman. HISTORY OF PRESENT ILLNESS: Please review the 03/02/2020 dictation done by me. HOSPITAL COURSE AND RESPONSE TO TREATMENT: The patient has been closely monitored on inpatient unit, provided with supportive psychotherapy. The patient has been encouraged to participate in the groups and verbalize the concerns. The patient appeared to be paranoid and has been sexually preoccupied. The patient has been placed on haloperidol that was given 5 mg in the morning and the patient has been placed on the valproic acid 500 mg twice a day. The patient had the physical examination done by Dr. Beckman and the patient has been treated with asthma and high blood pressure. HOSPITAL COURSE AND RESPONSE TO TREATMENT: The patient has blood work done at the time of the hospitalization is significant for HDL to be 34, LDL to be 69 and the patient is closely monitored and was not presenting any threats to harm self or others and hence the patient was discharged. MENTAL STATUS EXAMINATION AT THE TIME OF DISCHARGE: The patient's mood is noted to be anxious. Affect is appropriate. Not suicidal or homicidal. The patient's insight and judgment are noted to be improving. Impulse control is noted to be fair. No side effects to the medications are noted. The patient has been able to verbalize the concerns rather than to act out at the time of the discharge. No major behavioral problems are noted. The patient has paranoia, but denies any command hallucinations. The patient is not presenting as a threat to self or others. The patient is alert and oriented x 3 at the time of discharge. CONDITION AT THE TIME OF DISCHARGE: Noted to be stable. DIAGNOSES AT THE TIME OF DISCHARGE: AXIS I: Bipolar disorder, unspecified. AXIS II: None. AXIS III: As per Dr. Beckman. AFTERCARE PLAN: The patient is discharged to the [facility] for further followup by a psychiatrist. JOB# [id number]
== END 2020-03-10 14:50 | DRG 885 ==
LOC: GERO 21:00
PROVIDERS: ADMIT Psychiatry & Neurology Psychiatry; ATTEND Psychiatry & Neurology Psychiatry
DX: F29 Unspecified psychosis not due to a substance or known physiological condition (principal); I10 Essential (primary) hypertension; N40.0 Benign prostatic hyperplasia without lower urinary tract symptoms; Z21 Asymptomatic human immunodeficiency virus [HIV] infection status; K75.9 Inflammatory liver disease, unspecified
CPT/HCPCS: 36415-UA; 80061-TC; 83036-90; G0410; U0003-CS; Z7610